=== PATIENT | male | born 1965 | race Caucasian/White ===

== ENCOUNTER → 2016-09-02 | Emergency (ER) | payer OTHER ==
[~2016-09-02] MED LIST: MAGNESIUM SULF 50% (8.12 MEQ/2 ML-1 GM VIAL) IVPB ONE; MAGNESIUM SULF 50% (8.12 MEQ/2 ML-1 GM VIAL) ONE; METOCLOPRAMIDE HCL INJECTION 10 MG/2 ML VIAL IVPUSH ONE; METOCLOPRAMIDE HCL INJECTION 10 MG/2 ML VIAL ONE; SODIUM CHLORIDE 1,000 ML IV ONE
[2016-09-02 08:44] VITALS: BP 117/79; TEMP 98.6; BMI 29.6
--- NOTE | 2016-09-02 09:32 | PDOC ---
History of Present Illness - General Chief Complaint: Pain Stated Complaint: HEADACHES Time Seen by Provider: 09/02/16 09:30 History Source: Patient Exam Limitations: No Limitations - History of Present Illness Initial Comments: 09/02/16 09:43 51y M hx of htn, migraines, presents with headache since yesterday. Pt states he has had an intermittent headache yesterday, was taking tylenol with improvement, starting approx 10pm, the headache becamse worse and was constant and not relieved with tylenol. The pt localizes his headache to middle of his head and pounding in nature Pt states it is similar in nature to prior headaches , and is usually worse with caffeiene, endorses having caffiene yesterday and this morning (he knows he shouldnt). The patient states he use to be on meds for his migraines, but he stopped because although it would help his headache it would make him feel strange. The pt denies any fever/chills, neck pain, back pain, numnbness, tingling or weakness. The pt endorses photophobia, nausea/ vomiting. pt states onset was gradual, not a thunderclap headache, but it is a bit more severe than previous headache. Past History - Past Medical History Allergies/Adverse Reactions: Allergies Allergy/AdvReac Type Severity Reaction Status Date / Time No Known Allergies Allergy Verified 09/02/16 08:45 Home Medications: Ambulatory Orders Omeprazole Magnesium [Prilosec (OTC)] 20 mg PO DAILY PRN 03/13/12 Albuterol Sulfate Inhaler - [Ventolin HFA Inhaler -] 1 - 2 inh PO Q4H PRN GI Disorders: Yes (GERD) - Surgical History Abdominal Surgery: Yes (FUNOPLASTATION - HIATAL HERNIA) - Immunization History Td Vaccination: Yes Immunization Up to Date: Yes - Psycho/Social/Smoking Cessation Hx Anxiety: No Suicidal Ideation: No Smoking Status: No Smoking History: Never smoked Number of Cigarettes Smoked Daily: 0 Hx Alcohol Use: Yes (SOCIAL) Drug/Substance Use Hx: No Substance Use Type: None Neuro Specific PMHX - Complaint Specific PMHX Migraine: Yes Review of Systems - Review of Systems Able to Perform ROS?: Yes Comments:: 09/02/16 09:48 Constitutional - no reported Fever, Chills, HEENT: +photophobia no reported vision changes, sore throat Respiratory: no reported cough, sob, hemoptysis Cardiac: no reported chest pain, palpitations, light headedness, leg swelling Abd/GI: +nausea, vomiting, no reported abd pain, blood per rectum, melena, diarrhea : no reported dysuria, frequency, discharge Musculskelatal - no reported back pain, joint swelling skin - no reported bruising, erythema, rash neurological: +headache, no reported numbness, focal weakness, tingling, ataxia , hematologic: no reported anemia, easy bruising, easy bleeding *Physical Exam - Vital Signs Last Vital Signs Temp Pulse Resp BP Pulse Ox 98.6 F 79 20 117/79 100 09/02/16 08:42 09/02/16 08:42 09/02/16 08:42 09/02/16 08:42 09/02/16 08:42 - Physical Exam Comments: 09/02/16 09:48 GENERAL: The patient is awake, alert, and fully oriented, Nontoxic - in no acute distress. HEAD: Normocephalic, atraumatic. EYES: extraocular movements intact, sclera anicteric, conjunctiva clear. Pupils 3mm, PERRL ENT: Normal voice, Moist mucous membranes. NECK: Normal range of motion, supple LUNGS: Breath sounds equal, clear to auscultation bilaterally. No wheezes, no rhonchi, no rales. HEART: Regular rate and rhythm, normal S1 and S2 without murmur, rub or gallop. ABDOMEN: Soft, nontender, normoactive bowel sounds. No guarding, no rebound. . No CVA tenderness EXTREMITIES: Normal range of motion, no edema. No clubbing or cyanosis. No cords, erythema, or tenderness. NEUROLOGICAL: No facial assymetry, Normal speech, moving all 4 extremities spontaneously and symetrically PSYCH: Normal mood, normal affect. SKIN: Warm, Dry, normal turgor, ED Treatment Course - LABORATORY CBC & Chemistry Diagram: 09/02/16 09:53 09/02/16 11:15 Medical Decision Making - Medical Decision Making 09/02/16 09:49 suspect his typical migraine w/ aura considered SAH, however unlikely based on presentation (gradual mild onset/ intermitten) will give reglan, mag, fluids 09/02/16 11:54 Labs reviewed pt feeling significantly improved asking for food and to gohome will d/c with pmd and neuro fu return precautions were discussed I discussed the physical exam findings, ancillary test results and final diagnoses with the patient. I answered all of the patient's questions. The patient was satisfied with the care received and felt comfortable with the discharge plan and treatment plan. The patient will call their primary care physician within 24 hours to arrange follow-up and will return to the Emergency Department with any new, persistent or worsening symptoms. *DC/Admit/Observation/Transfer Diagnosis at time of Disposition: Migraine headache Qualifiers: Migraine type: other Status migrainosus presence: without status migrainosus Intractability: not intractable Qualified Code(s): G43.809 - Other migraine, not intractable, without status migrainosus - Discharge Dispostion Disposition: HOME Condition at time of disposition: Improved Admit: No - Referrals Referrals: [facility] [Provider Group] Dipak Hein DO [Staff Physician] - - Patient Instructions Printed Discharge Instructions: DI for Migraine, Migraine -- Adult Additional Instructions: Return to the emergency department immediately with ANY new, persistent or worsening symptoms including worsening headache, vision changes, numbness/ tingling/weakness, persistent nausea and vomiting or any other concerns. Make sure you are getting adaqute sleep and hydration. Avoid Caffeine. You MUST call and follow up with your doctor and a neurologist within 1 week for further evaluation of your symptoms. Your emergency department visit is not complete without a followup with your doctor for reevaluation. Results were discussed with you. Please make sure your doctor reviews the results of your emergency evaluation. Print Language: TELUGU
[2016-09-02 10:30] LABS: BASOPHIL 0.6 % (0-2.0); MCH 31.1 pg (25.7-33.7); MEAN CELL VOLUME 88.7 fl (80-96); MEAN PLT VOLUME 8.6 fl (7.5-11.1); PLATELET COUNT 163 K/MM3 (134-434); WHITE BLOOD COUNT 6.4 K/mm3 (4.0-10.0)
[2016-09-02 12:12] LABS: ALBUMIN 3.5 g/dl (3.4-5.0); ALK PHOS 70 U/L (45-117); ANION GAP 5 (8-16); BILIRUBIN,TOTAL 0.4 mg/dL (0.2-1.0); CALCIUM 8.7 mg/dL (8.5-10.1); CO2 30 mmol/L (21-32); CREATININE 0.7 mg/dL (0.7-1.3); GLUCOSE,RANDOM 100 mg/dL (74-106); SGOT/AST 19 U/L (15-37); SGPT/ALT 26 U/L (12-78); TOT PROT 6.2 g/dl (6.4-8.2)
[2016-09-02 12:59] VITALS: PULSE 72
== END | disposition home or self-care (01) ==
LOC: JER 08:41
PROC: 3E033GC Introduction of Other Therapeutic Substance into Peripheral Vein, Percutaneous Approach (ICD-10-PCS; principal; 2016-09-02)
PROC: 3E0337Z Introduction of Electrolytic and Water Balance Substance into Peripheral Vein, Percutaneous Approach (ICD-10-PCS; 2016-09-02)
DX: G43.809 Other migraine, not intractable, without status migrainosus (principal)
CPT/HCPCS: 36415; 80053; 85025; 99283-25

== ENCOUNTER 2021-03-23 16:39 | Observation (INO) | payer OTHER, SELFPAY ==
[2021-03-23] MEDS ORDERED: METOCLOPRAMIDE HCL INJECTION 10 MG/2 ML VIAL IVPB ONE (17:50)
[2021-03-23] MEDS ORDERED: ACETAMINOPHEN 1000 MG/100 ML BAG IVPB ONE (17:50)
[2021-03-23 17:59] LABS: BASO % 0.4 % (0-2.0); EOS % 3.4 % (0-4.5); HEMATOCRIT 50.4 % (35.4-49); HEMOGLOBIN 17.1 GM/dL (11.7-16.9); LYMPH % 30.3 % (8-40); MCH 30.1 pg (25.7-33.7); MCHC 33.9 g/dl (32.0-35.9); MEAN CELL VOLUME 88.8 fl (80-96); MEAN PLT VOLUME 8.8 fl (7.5-11.1); MONO % 4.9 % (3.8-10.2); PLATELET COUNT 234 10^3/uL (134-434); RBC 5.68 M/mm3 (4.00-5.60); RDW 12.8 % (11.9-15.9); WHITE BLOOD COUNT 7.9 K/mm3 (4.0-10.0)
[2021-03-23 18:07] LABS: INR 0.99 (0.83-1.09); PROTHROMBIN TIME (PATIENT) 11.4 SEC (9.7-13.0)
[2021-03-23 18:10] LABS: ACTIVATED PTT 36.5 SECONDS (25.2-36.5)
[2021-03-23 18:18] LABS: CALCIUM 10.4 mg/dL (8.5-10.1)
[2021-03-23] MEDS ORDERED: ONDANSETRON 4 MG/2 ML VIAL IVPUSH ONE (18:18)
[2021-03-23] MEDS ORDERED: ACETAMINOPHEN INJECTION 100 ML IVPB ONE (18:18)
[2021-03-23] MEDS ORDERED: METOCLOPRAMIDE HCL INJECTION 10 MG/2 ML VIAL ONE (18:18)
[2021-03-23 18:21] LABS: CREATININE 1.2 mg/dL (0.55-1.3)
[2021-03-23 18:23] LABS: BILIRUBIN,TOTAL 0.5 mg/dL (0.2-1); TOT PROT 9.2 g/dl (6.4-8.2)
[2021-03-24] MEDS ORDERED: ACETAMINOPHEN 500 MG TABLET (FP) PO PRN (01:08)
[2021-03-24] MEDS ORDERED: ACETAMINOPHEN 500 MG TABLET (FP) ONE (01:40)
[2021-03-24] MEDS: SODIUM CHLORIDE 1,000 ML IV SCH ×2 (01:56→23:55)
[2021-03-24 05:12] LABS: PH,URINE 5.5 (5.0-8.0); URINE APPEARANCE CLEAR; URINE BILIRUBIN NEGATIVE (NEGATIVE); URINE COLOR YELLOW; URINE GLUCOSE (UA) 2+ (NEGATIVE); URINE KETONE NEGATIVE (NEGATIVE); URINE LEUK ESTERASE NEGATIVE (NEGATIVE); URINE NITRITE NEGATIVE (NEGATIVE); URINE PROTEIN NEGATIVE (NEGATIVE); URINE UROBILINOGEN 0.2 mg/dL (0.2-1.0)
[2021-03-24 05:17] LABS: COCAINE, UR NEGATIVE (NEGATIVE)
[2021-03-24 05:18] LABS: PHENCYCLIDINE,URINE NEGATIVE (NEGATIVE); URINE BARBITURATES NEGATIVE (NEGATIVE)
[2021-03-24 05:24] LABS: METHADONE, UR NEGATIVE (NEGATIVE); OPIATES, URI NEGATIVE (NEGATIVE); URINE AMPHETAMINES NEGATIVE (NEGATIVE); URINE BENZODIAZEPINES NEGATIVE (NEGATIVE)
[2021-03-24 08:18] LABS: BASO % 0.5 % (0-2.0); EOS % 4.4 % (0-4.5); HEMATOCRIT 43.9 % (35.4-49); HEMOGLOBIN 15.3 GM/dL (11.7-16.9); LYMPH % 36.5 % (8-40); MCH 30.7 pg (25.7-33.7); MCHC 34.9 g/dl (32.0-35.9); MEAN CELL VOLUME 87.9 fl (80-96); MEAN PLT VOLUME 7.9 fl (7.5-11.1); MONO % 7.4 % (3.8-10.2); NEUT % 51.2 % (42.8-82.8); PLATELET COUNT 175 10^3/uL (134-434); RDW 13.1 % (11.9-15.9); WHITE BLOOD COUNT 6.2 K/mm3 (4.0-10.0)
[2021-03-24 08:51] LABS: BLOOD UREA NITROGEN 14.6 mg/dL (7-18)
[2021-03-24 08:54] LABS: CREATININE 0.9 mg/dL (0.55-1.3)
[2021-03-24 08:55] LABS: BILIRUBIN,TOTAL 0.6 mg/dL (0.2-1)
[2021-03-24 09:09] LABS: ALBUMIN 3.7 g/dl (3.4-5.0); TOT PROT 6.6 g/dl (6.4-8.2)
[2021-03-24] MEDS: INSULIN SLIDING SCALE (NOVOLOG) 1 VIAL SQ SCH ×4 (11:04→23:54)
[2021-03-24] MEDS ORDERED: HYDROCHLOROTHIAZIDE 25 MG TABLET (FP) ONE (12:25)
[2021-03-24] MEDS ORDERED: LISINOPRIL 5 MG TABLET ONE (12:25)
[2021-03-24] MEDS: LISINOPRIL 10 MG TABLET PO SCH (13:03)
[2021-03-24] MEDS: HYDROCHLOROTHIAZIDE 12.5 MG CAPSULE (FP) PO SCH (13:03)
[2021-03-24 15:07] LABS: SARS-CoV-2 NAA Not Detected (Not Detected)
[2021-03-24] MEDS ORDERED: ATORVASTATIN CA 40 MG TABLET (FP) PO ONE (15:21)
[2021-03-24] MEDS ORDERED: ATORVASTATIN CA 40 MG TABLET (FP) ONE (16:39)
[2021-03-25 00:23] VITALS: BMI 29.0
[2021-03-25] MEDS: SODIUM CHLORIDE 1,000 ML IV SCH (01:45)
[2021-03-25] MEDS: INSULIN SLIDING SCALE (NOVOLOG) 1 VIAL SQ SCH ×2 (06:24→11:57)
[2021-03-25 07:27] LABS: BASO % 0.5 % (0-2.0); HEMATOCRIT 42.3 % (35.4-49); HEMOGLOBIN 14.2 GM/dL (11.7-16.9); LYMPH % 36.1 % (8-40); MCH 29.8 pg (25.7-33.7); MCHC 33.6 g/dl (32.0-35.9); MEAN CELL VOLUME 88.5 fl (80-96); MEAN PLT VOLUME 8.3 fl (7.5-11.1); NEUT % 50.4 % (42.8-82.8); PLATELET COUNT 165 10^3/uL (134-434); RBC 4.78 M/mm3 (4.00-5.60); RDW 13.1 % (11.9-15.9); WHITE BLOOD COUNT 6.2 K/mm3 (4.0-10.0)
[2021-03-25 07:50] LABS: CALCIUM 8.8 mg/dL (8.5-10.1); MAGNESIUM 2.1 mg/dL (1.8-2.4)
[2021-03-25 07:51] LABS: ALBUMIN 3.5 g/dl (3.4-5.0); BLOOD UREA NITROGEN 14.4 mg/dL (7-18)
[2021-03-25 07:53] LABS: CREATININE 0.7 mg/dL (0.55-1.3); PHOSPHOROUS 3.8 mg/dL (2.5-4.9); TOT PROT 6.4 g/dl (6.4-8.2)
[2021-03-25 07:54] LABS: BILIRUBIN,TOTAL 0.6 mg/dL (0.2-1)
[2021-03-25] MEDS: LISINOPRIL 10 MG TABLET PO SCH (09:59)
[2021-03-25] MEDS: HYDROCHLOROTHIAZIDE 12.5 MG CAPSULE (FP) PO SCH (09:59)
[2021-03-25 10:20] VITALS: BP 144/103; PULSE 81; TEMP 98.1
[2021-03-25] MEDS ORDERED: ATORVASTATIN CA 40 MG TABLET (FP) PO SCH (22:00)
== END 2021-03-25 13:00 | disposition home or self-care (01) ==
LOC: JER 16:39 → JERBED 21:04 → UNDOADMOB 21:04 → OBSVTOIN 03-24 01:38 → INTOOBSV 03-24 01:38 → JERBED 03-24 10:04 → J4W 03-24 23:45
PROVIDERS: ADMIT Internal Medicine; ATTEND Nurse Practitioner Family
PROC: 3E033NZ Introduction of Analgesics, Hypnotics, Sedatives into Peripheral Vein, Percutaneous Approach (ICD-10-PCS; principal; 2021-03-24)
PROC: 3E033GC Introduction of Other Therapeutic Substance into Peripheral Vein, Percutaneous Approach (ICD-10-PCS; 2021-03-24)
DX: E11.9 Type 2 diabetes mellitus without complications (principal); G43.909 Migraine, unspecified, not intractable, without status migrainosus; I10 Essential (primary) hypertension; K21.9 Gastro-esophageal reflux disease without esophagitis; M62.81 Muscle weakness (generalized); E78.5 Hyperlipidemia, unspecified; R19.7 Diarrhea, unspecified; R11.0 Nausea; R42 Dizziness and giddiness; E66.3 Overweight; Z68.29 Body mass index [BMI] 29.0-29.9, adult; Z29.9 Encounter for prophylactic measures, unspecified
CPT/HCPCS: 36415; 70450-TC; 70544-TC; 70551-TC; 80053; 80061; 80307; 81003; 82436; 82550; 82570; 82962; 83036; 83735; 84100; 84133; 84156; 84300; 84443; 84484; 85025; 85610; 85730; 93005; 93010; 93880-TC; 96374; 96375; 99285-25; C9803; G0378; U0003; U0005

== ENCOUNTER 2022-01-02 15:34 | Emergency (ER) | payer OTHER ==
[2022-01-02 16:21] VITALS: BP 132/88; PULSE 87; RESP 18; TEMP 99; BMI 28.3
== END 2022-01-02 21:42 | disposition home or self-care (01) ==
LOC: JER 15:34
DX: J09.X2 Influenza due to identified novel influenza A virus with other respiratory manifestations (principal)
CPT/HCPCS: 0241U-QW; 71046-TC-FY; 99284-25

== ENCOUNTER 2023-02-15 15:06 | Emergency (ER) | payer OTHER ==
[2023-02-15 15:30] VITALS: BP 146/95; PULSE 91; RESP 18; TEMP 98.9; BMI 28.1
[2023-02-15] MEDS ORDERED: KETOROLAC TROMETHAMINE 30 MG/1 ML VIAL IM ONE (16:37)
[2023-02-15] MEDS ORDERED: KETOROLAC TROMETHAMINE 30 MG/1 ML VIAL ONE (16:48)
== END 2023-02-15 17:05 | disposition home or self-care (01) ==
LOC: JERFT 15:06
PROC: 3E0233Z Introduction of Anti-inflammatory into Muscle, Percutaneous Approach (ICD-10-PCS; principal; 2023-02-15)
DX: J06.9 Acute upper respiratory infection, unspecified (principal); B34.9 Viral infection, unspecified; R05.9 Cough, unspecified; R51.9 Headache, unspecified; R07.0 Pain in throat; M79.10 Myalgia, unspecified site; R53.83 Other fatigue; R09.89 Other specified symptoms and signs involving the circulatory and respiratory systems; Z20.822 Contact with and (suspected) exposure to COVID-19
CPT/HCPCS: 0241U-QW; 99284-25

== ENCOUNTER 2023-02-17 08:53 | Emergency (ER) | payer OTHER ==
[2023-02-17 09:15] VITALS: BMI 28.1
[2023-02-17] MEDS ORDERED: ACETAMINOPHEN 1000 MG/100 ML BAG IVPB ONE (09:26)
[2023-02-17] MEDS ORDERED: SODIUM CHLORIDE 0.9% 1000 ML INFUS.BAG IV ONE ×2 (09:26→11:13)
[2023-02-17] MEDS ORDERED: ACETAMINOPHEN INJECTION 100 ML IVPB ONE (09:49)
[2023-02-17 10:21] LABS: BASO % 0.3 % (0-2.0); EOS % 0.9 % (0-4.5); HEMATOCRIT 45.7 % (35.4-49); HEMOGLOBIN 15.8 GM/dL (11.7-16.9); MCH 30.8 pg (25.7-33.7); MCHC 34.7 g/dl (32.0-35.9); MEAN PLT VOLUME 7.9 fl (7.5-11.1); MONO % 8.7 % (3.8-10.2); NEUT % 76.1 % (42.8-82.8); PLATELET COUNT 190 10^3/uL (134-434); RBC 5.14 M/mm3 (4.00-5.60); RDW 12.9 % (11.9-15.9); WHITE BLOOD COUNT 5.8 K/mm3 (4.0-10.0)
[2023-02-17 11:00] LABS: POTASSIUM 4.2 mmol/L (3.5-5.1)
[2023-02-17 11:03] LABS: CALCIUM 9.5 mg/dL (8.5-10.1)
[2023-02-17 11:04] LABS: ALBUMIN 3.9 g/dl (3.4-5.0); BLOOD UREA NITROGEN 10.1 mg/dL (7-18)
[2023-02-17 11:07] LABS: CREATININE 0.9 mg/dL (0.55-1.3)
[2023-02-17 11:08] LABS: BILIRUBIN,TOTAL 0.5 mg/dL (0.2-1); TOT PROT 7.4 g/dl (6.4-8.2)
[2023-02-17 13:06] LABS: URINE APPEARANCE CLEAR; URINE BILIRUBIN NEGATIVE (NEGATIVE); URINE COLOR YELLOW; URINE GLUCOSE (UA) NEGATIVE (NEGATIVE); URINE KETONE NEGATIVE (NEGATIVE); URINE LEUK ESTERASE NEGATIVE (NEGATIVE); URINE NITRITE NEGATIVE (NEGATIVE); URINE PROTEIN NEGATIVE (NEGATIVE)
[2023-02-17 14:58] VITALS: BP 130/85; PULSE 88; RESP 15; TEMP 98.8
== END 2023-02-17 14:56 | disposition home or self-care (01) ==
LOC: JER 08:53
PROC: 3E033NZ Introduction of Analgesics, Hypnotics, Sedatives into Peripheral Vein, Percutaneous Approach (ICD-10-PCS; principal; 2023-02-17)
DX: R05.9 Cough, unspecified (principal); R09.89 Other specified symptoms and signs involving the circulatory and respiratory systems; R63.0 Anorexia; R50.9 Fever, unspecified; J40 Bronchitis, not specified as acute or chronic; Z20.822 Contact with and (suspected) exposure to COVID-19
CPT/HCPCS: 0241U-QW; 36415; 71046-TC-FY; 80053; 81003; 83605; 84484; 85025; 87040; 87086; 87651; 93005; 93010; 99285-25